=== PATIENT | female | born 1935 | race Caucasian/White ===

== ENCOUNTER 2021-03-10 07:24 | Outpatient (CLI) | payer MEDICARE, SELFPAY ==
[2021-03-10 08:20] VITALS: BP 126/77; PULSE 86; RESP 17; TEMP 36.7; O2SAT 95
[2021-03-10 08:57] VITALS: BP 119/72; PULSE 78; RESP 15; TEMP 36.6; O2SAT 95
[2021-03-10 10:06] VITALS: BP 144/80; PULSE 81; RESP 18; TEMP 36.7
== END 2021-03-10 07:25 | disposition home or self-care (01) ==
LOC: OPS 07:30
PROVIDERS: Visit Provider Nurse Practitioner Family
DX: U07.1 COVID-19 (principal)
CPT/HCPCS: 96365